=== PATIENT | male | born 1960 | race African-American/Black ===

== ENCOUNTER 2020-08-26 10:28 | Outpatient (CLI) | payer OTHER ==
[2020-08-26 11:38] LABS: #Eosinphils 0.1 10x3/uL (0.0-0.5); #Monocytes 0.7 10x3/uL (0.0-1.1); #Neutrophils 2.6 10x3/uL (1.5-8.4); %Basophils 0.7 % (0.0-2.0); %Eosinophils 1.8 % (0.0-6.0); %Lymphocytes 36.6 % (18.0-47.0); %Neutrophils 47.7 % (40.0-75.0); Hemoglobin 15.9 g/dL (13.5-17.5); Mean Corpuscular HGB CONC 33.6 g/dL (32.0-36.0); Mean Corpuscular Hemoglobin 30.3 pg (27.0-33.0); Mean Corpuscular Volume 90.1 fl (81.2-95.1); Mean Platelet Volume 11.1 fl (7.4-10.4); Platelet Count 213 10x3/uL (150-450); Red Blood Cell (RBC) Count 5.25 10x6/uL (4.32-5.72); White Blood Cell (WBC) Count 5.5 10x3/uL (3.5-10.5)
[2020-08-26 11:48] LABS: Anion Gap 14 mmol/L (10-20); BUN (Urea Nitrogen) 12 mg/dL (8.4-25.7); Calc. Creatinine Clearance 0 mL/min (70-130); Calcium 9.3 mg/dL (7.8-10.44); Carbon Dioxide 27 mmol/L (22-29); Chloride 104 mmol/L (98-107); Glucose 95 mg/dL (70-105); Potassium 3.8 mmol/L (3.5-5.1); Sodium 141 mmol/L (136-145)
[2020-08-26 19:01] LABS: SARS-CoV-2 PCR by NAA Not Detected (NotDetected)
[2020-08-27 18:41] LABS: Hemoglobin A1c 4.9 % (4.0-6.0)
== END 2020-08-26 10:29 | disposition home or self-care (01) ==
LOC: LABBT 10:28
PROVIDERS: ATTEND Surgery
DX: Z01.818 Encounter for other preprocedural examination (principal); C18.2 Malignant neoplasm of ascending colon; Z20.822 Contact with and (suspected) exposure to COVID-19
CPT/HCPCS: 80048; 83036; 85025; 87635; 93005; 93010; U0003; U0005

== ENCOUNTER 2020-08-29 07:04 | Inpatient (IN) | payer OTHER ==
[2020-08-28 11:33] VITALS: BMI 24.9
[2020-08-29] MEDS ORDERED: cefOXitin Sodium/Dextrose 2 GM/50 ML BAG ONE (07:45)
[2020-08-29] MEDS ORDERED: Fentanyl 100 MCG/2 ML VIAL ONE ×4 (08:54→12:38)
[2020-08-29] MEDS ORDERED: Midazolam HCl 2 mg/2 ml Vial ONE (08:54)
[2020-08-29] MEDS ORDERED: Lidocaine 2% w/Epinephrine 1:200K 20 ML VIAL ONE (09:15)
[2020-08-29] MEDS ORDERED: Indocyanine Green 25 MG/10 ML VIAL ONE (09:15)
[2020-08-29] MEDS ORDERED: Bupivacaine 0.25% HCL 30 ML VIAL ONE (09:15)
[2020-08-29] MEDS ORDERED: Lidocaine 2% Jelly 5 ML TUBE ONE (09:29)
[2020-08-29] MEDS ORDERED: ePHEDrine Sulfate 50 MG/10 ML VIAL ONE (09:37)
[2020-08-29] MEDS ORDERED: Rocuronium Bromide 10 MG/ML (10ML VIAL) ONE (09:37)
[2020-08-29] MEDS ORDERED: Glycopyrrolate 0.2 MG/ML 5 ML SYRINGE ONE (09:37)
[2020-08-29] MEDS ORDERED: Dexamethasone 20 MG/5 ML VIAL ONE (09:37)
[2020-08-29] MEDS ORDERED: PROPOFOL 200 MG/20 ML VIAL ONE (09:37)
[2020-08-29] MEDS ORDERED: Ondansetron PF 4 MG/2 ML Vial ONE (09:37)
[2020-08-29] MEDS ORDERED: PHENYLEPHRINE-NS 100 MCG/ML 10 ML SYRINGE ONE (09:37)
[2020-08-29] MEDS ORDERED: Bupivacaine HCl 0.5%/Epinephrine 1:200,000/PF 30 ml Vial ONE (09:37)
[2020-08-29] MEDS ORDERED: Lidocaine 1% PF 5 ML VIAL ONE (09:37)
[2020-08-29] MEDS ORDERED: Ondansetron HCl/PF 4 MG/2 ML Vial IVP PRN (12:02)
[2020-08-29] MEDS ORDERED: Promethazine HCl 25 MG/ML VIAL IM PRN ×2 (12:02→15:59)
[2020-08-29] MEDS ORDERED: Promethazine HCl 25 MG/ML VIAL SLOW IVP PRN (12:02)
[2020-08-29] MEDS ORDERED: Fentanyl 100 MCG/2 ML VIAL SLOW IVP PRN ×2 (15:59)
[2020-08-29] MEDS ORDERED: Ondansetron PF 4 MG/2 ML Vial IVP PRN (15:59)
[2020-08-29] MEDS ORDERED: hydrALAZINE 20 MG/ML VIAL SLOW IVP PRN (15:59)
[2020-08-29] MEDS: D5 1/2 NS w/20 mEq KCL 1,000 ML IV SCH (16:35)
[2020-08-29] MEDS: cefOXitin Sodium/Dextrose,Iso 2 GM in Premix Bag 1 BAG IVPB SCH (16:39)
[2020-08-29] MEDS: Famotidine/PF 20 mg/2ml Vial SLOW IVP SCH (20:39)
[2020-08-29] MEDS: Enoxaparin Sodium 40 MG/0.4 ML SYRINGE SC SCH (20:39)
[2020-08-29] MEDS: Famotidine 20 MG TAB PO SCH (20:43)
[2020-08-30] MEDS: HYDROcodone/Acetaminophen 7.5/325 mg Tablet PO PRN ×4 (00:04→20:11)
[2020-08-30] MEDS: cefOXitin Sodium/Dextrose,Iso 2 GM in Premix Bag 1 BAG IVPB SCH (00:16)
[2020-08-30] MEDS: D5 1/2 NS w/20 mEq KCL 1,000 ML IV SCH ×3 (00:18→11:34)
[2020-08-30 05:46] LABS: #Lymphocytes 1.5 thou/uL (1.20-3.40); #Monocytes 2.1 thou/uL (0.11-0.59); %Basophils 0.2 % (0.0-1.0); %Eosinophils 0.1 % (0.0-10.0); %Lymphocytes 9.5 % (21.0-51.0); %Monocytes 13.6 % (0.0-10.0); %Neutrophils 76.7 % (42.0-75.0); Hemoglobin 14.5 g/dL (14.0-18.0); Mean Corpuscular HGB CONC 33.8 g/dL (32.0-36.0); Mean Corpuscular Hemoglobin 31.2 pg (27.0-31.0); Mean Corpuscular Volume 92.3 fL (78.0-98.0); Mean Platelet Volume 9.2 fL (7.4-10.4); Platelet Count 182 thou/uL (130-400); RBC Distribution Width 11.3 % (11.5-14.5); Red Blood Cell (RBC) Count 4.64 mill/uL (4.70-6.10); White Blood Cell (WBC) Count 15.6 thou/uL (4.8-10.8)
[2020-08-30 06:06] LABS: Anion Gap 13 mmol/L (10-20); BUN (Urea Nitrogen) 10 mg/dL (8.4-25.7); Calc. Creatinine Clearance 68 mL/min (70-130); Calcium 8.1 mg/dL (7.8-10.44); Carbon Dioxide 24 mmol/L (22-29); Chloride 104 mmol/L (98-107); Glucose 104 mg/dL (70-105); Potassium 3.4 mmol/L (3.5-5.1); Sodium 138 mmol/L (136-145)
[2020-08-30] MEDS: Valsartan 80 MG TAB PO SCH (08:15)
[2020-08-30] MEDS: Hydrochlorothiazide 25 MG TAB PO SCH (08:15)
[2020-08-30] MEDS: Famotidine 20 MG TAB PO SCH (08:16)
[2020-08-30] MEDS: Famotidine/PF 20 mg/2ml Vial SLOW IVP SCH ×2 (08:25→20:12)
[2020-08-30] MEDS: Enoxaparin Sodium 40 MG/0.4 ML SYRINGE SC SCH (20:13)
[2020-08-31] MEDS: Famotidine 20 MG TAB PO SCH ×2 (03:39→08:39)
[2020-08-31] MEDS: D5 1/2 NS w/20 mEq KCL 1,000 ML IV SCH (04:15)
[2020-08-31 08:34] VITALS: TEMP 98.5
[2020-08-31] MEDS: Hydrochlorothiazide 25 MG TAB PO SCH (08:38)
[2020-08-31] MEDS: Valsartan 80 MG TAB PO SCH (08:39)
[2020-08-31 12:07] VITALS: BP 135/96
== END 2020-08-31 12:57 | disposition home or self-care (01) | DRG 331 ==
LOC: SDC 07:04 → SURG B 11:39 → SDC 15:59
PROVIDERS: ADMIT Surgery; ATTEND Surgery
PROC: 0DBF4ZZ Excision of Right Large Intestine, Percutaneous Endoscopic Approach (ICD-10-PCS; principal; 2020-08-29)
PROC: 8E0W4CZ Robotic Assisted Procedure of Trunk Region, Percutaneous Endoscopic Approach (ICD-10-PCS; 2020-08-29)
DX: C18.9 Malignant neoplasm of colon, unspecified (principal); I10 Essential (primary) hypertension; Z80.0 Family history of malignant neoplasm of digestive organs
CPT/HCPCS: 36415; 36416; 80048; 85025; 88307; J0694; J1100; J1650; J2250; J2405; J2704; J3010; J3480; S0020; S0028

== ENCOUNTER 2020-11-21 10:28 | Outpatient (CLI) | payer OTHER ==
[2020-11-21 12:11] LABS: Anion Gap 14 mmol/L (10-20); BUN (Urea Nitrogen) 10 mg/dL (8.4-25.7); Calc. Creatinine Clearance 0 mL/min (70-130); Calcium 9.3 mg/dL (7.8-10.44); Carbon Dioxide 27 mmol/L (22-29); Chloride 104 mmol/L (98-107); Glucose 83 mg/dL (70-105); Sodium 141 mmol/L (136-145)
== END 2020-11-21 10:29 | disposition home or self-care (01) ==
LOC: LABBT 10:28
PROVIDERS: ATTEND Surgery
DX: Z01.812 Encounter for preprocedural laboratory examination (principal); K40.91 Unilateral inguinal hernia, without obstruction or gangrene, recurrent
CPT/HCPCS: 80048

== ENCOUNTER 2020-11-26 06:04 | Day surgery (SDC) | payer OTHER ==
[2020-11-25 10:50] VITALS: BMI 24.4
[2020-11-26] MEDS ORDERED: Bupivacaine 0.25% HCL 30 ML VIAL ONE (06:48)
[2020-11-26] MEDS ORDERED: Lidocaine 1% w/Epinephrine 1:100K 20 ML VIAL ONE (06:48)
[2020-11-26] MEDS ORDERED: Fentanyl 100 MCG/2 ML VIAL ONE ×3 (07:02→10:26)
[2020-11-26] MEDS ORDERED: Midazolam HCl 2 mg/2 ml Vial ONE (07:30)
[2020-11-26] MEDS ORDERED: Rocuronium Bromide 10 MG/ML (10ML VIAL) ONE (07:48)
[2020-11-26] MEDS ORDERED: Dexamethasone 20 MG/5 ML VIAL ONE (07:48)
[2020-11-26] MEDS ORDERED: PROPOFOL 200 MG/20 ML VIAL ONE (07:48)
[2020-11-26] MEDS ORDERED: Glycopyrrolate 0.2 MG/ML 5 ML SYRINGE ONE (07:48)
[2020-11-26] MEDS ORDERED: Ondansetron PF 4 MG/2 ML Vial ONE (07:48)
[2020-11-26] MEDS ORDERED: Labetalol HCl 100 MG/20 ML VIAL ONE (08:50)
[2020-11-26] MEDS ORDERED: hydrALAZINE 20 MG/ML VIAL ONE (09:20)
== END 2020-11-26 11:59 | disposition home or self-care (01) ==
LOC: SDC 06:04
PROVIDERS: ATTEND Surgery
PROC: 0YU64JZ Supplement Left Inguinal Region with Synthetic Substitute, Percutaneous Endoscopic Approach (ICD-10-PCS; principal; 2020-11-26)
DX: K40.91 Unilateral inguinal hernia, without obstruction or gangrene, recurrent (principal)
CPT/HCPCS: C1781; J0360; J0690; J1100; J2250; J2405; J2704; J3010; S0020